=== PATIENT | female | born 1940 | race Caucasian/White ===

== ENCOUNTER 2021-12-02 16:04 | Emergency (ER) | payer MEDICARE ==
[2021-12-02 16:44] VITALS: TEMP 98.7
[2021-12-02 16:58] VITALS: PULSE 72
[2021-12-02 17:30] LABS: Basophils # (A) 0.1 k/uL (0-0.2); Basophils % (A) 1 %; Eosinophils # (A) 0.1 k/uL (0-0.7); Eosinophils % (A) 1 %; HCT 39.2 % (34.0-46.0); HGB 13.1 gm/dL (11.4-16.0); Lymphocytes # (A) 1.2 k/uL (1.0-4.8); Lymphocytes % (A) 13 %; MCH 32.9 pg (25.0-35.0); MCHC 33.3 g/dL (31.0-37.0); MCV 98.9 fL (80.0-100.0); Mean Platelet Volume 8.1; Monocytes # (A) 0.4 k/uL (0-1.0); Monocytes % (A) 4 %; Neutrophils # (A) 7.2 k/uL (1.3-7.7); Neutrophils % (A) 80 %; Platelet Count 232 k/uL (150-450); RBC 3.97 m/uL (3.80-5.40); RDW 12.6 % (11.5-15.5)
--- NOTE | 2021-12-02 17:30 | ED ---
General Adult HPI - General Chief complaint: Syncope Stated complaint: Syncope Time Seen by Provider: 12/02/21 16:45 Source: patient, EMS, RN notes reviewed, old records reviewed Mode of arrival: EMS Limitations: no limitations - History of Present Illness Initial comments: This a 80-year-old female presents emergency Department after having had a synco pal episode. Patient states it has happened in the past. Patient states she's had a loop recorder in for about a year and a half and his been told that there have been episodes where she has had little long pauses in her heartbeat. Patient states today she was getting out of a car felt strange states her vision became all white and she had to be sent down on the ground and her stated she was unconscious for approximately 1 minute. Patient denies any chest pain palpitations difficulty breathing or shortness of breath. Patient states now she still feels a little weird but does not have the sensation she is going to pass out. No time did the patient have any palpitations. Patient has had no recent fever chills or cough. Patient denies abdominal pain patient denies any recent vomiting or diarrhea. - Related Data Home Medications Medication Instructions Recorded Confirmed Acetaminophen [Tylenol 8 Hour] 1,300 mg PO TID PRN 12/02/21 12/02/21 Apixaban [Eliquis] 5 mg PO BID 12/02/21 12/02/21 Candesartan Cilexetil 4 mg PO BID 12/02/21 12/02/21 Cetirizine HCl 10 mg PO DAILY 12/02/21 12/02/21 Dronedarone HCl [Multaq] 400 mg PO BID 12/02/21 12/02/21 Famotidine [Pepcid AC] 20 mg PO DAILY 12/02/21 12/02/21 Levothyroxine Sodium [Synthroid] 125 mcg PO DAILY 12/02/21 12/02/21 hydroCHLOROthiazide [Hydrodiuril] 25 mg PO DAILY 12/02/21 12/02/21 Allergies Allergy/AdvReac Type Severity Reaction Status Date / Time No Known Allergies Allergy Verified 12/02/21 18:16 Review of Systems ROS Statement: Those systems with pertinent positive or pertinent negative responses have been documented in the HPI. ROS Other: All systems not noted in ROS Statement are negative. Past Medical History Past Medical History: Atrial Fibrillation, Coronary Artery Disease (CAD), Hypertension, Thyroid Disorder Additional Past Medical History / Comment(s): spondylsis, factor 5 deficiency, hoshimoto History of Any Multi-Drug Resistant Organisms: None Reported Past Surgical History: Adenoidectomy, Appendectomy, Tonsillectomy Past Psychological History: No Psychological Hx Reported Smoking Status: Never smoker Past Alcohol Use History: None Reported Past Drug Use History: None Reported General Exam - General Exam Comments Initial Comments: GENERAL: Patient is well-developed and well-nourished. Patient is nontoxic and well- hydrated and is in no acute distress. ENT: Neck is soft and supple. No significant lymphadenopathy is noted. Oropharynx is clear. Moist mucous membranes. Neck has full range of motion without eliciting any pain. EYES: The sclera were anicteric and conjunctiva were pink and moist. Extraocular movements were intact and pupils were equal round and reactive to light. Eyelids were unremarkable. PULMONARY: Unlabored respirations. Good breath sounds bilaterally. No audible rales rhonchi or wheezing was noted. CARDIOVASCULAR: There is a regular rate and rhythm without any murmurs gallops or rubs. ABDOMEN: Soft and nontender with normal bowel sounds. SKIN: Skin is clear with no lesions or rashes and otherwise unremarkable. NEUROLOGIC: Patient is alert and oriented x3. Cranial nerves II through XII are grossly intact. Motor and sensory are also intact. Normal speech, volume and content. Symmetrical smile. MUSCULOSKELETAL: Normal extremities with adequate strength and full range of motion. LYMPHATICS: No significant lymphadenopathy is noted PSYCHIATRIC: Normal psychiatric evaluation. Limitations: no limitations Course Vital Signs 12/02/21 12/02/21 12/02/21 16:39 16:58 18:20 Temperature 98.7 F Pulse Rate 61 72 72 Respiratory 18 18 14 Rate Blood Pressure 110/67 134/74 O2 Sat by Pulse 98 Oximetry Medical Decision Making - Medical Decision Making EKG shows sinus rhythm at 61 bpm RI interval is 245 QRS is 91 Q-T intervals 432 QTC is 434. Patient's EKG shows some Q waves in 3 and aVF. Chest x-ray shows no acute normalities. Head CT shows no acute abnormality. I spoke with both the and the and indicated I believe they should s cristian in the hospital overnight and see a mortgage originator the morning they discussed it amongst themselves and determined that that was not necessary and he would go home and see the mortgage originator. - Lab Data Result diagrams: 12/02/21 16:30 12/02/21 17:35 Lab Results 12/02/21 12/02/21 12/02/21 Range/Units 16:30 17:35 17:35 WBC 9.0 (3.8-10.6) k/uL RBC 3.97 (3.80-5.40) m/uL Hgb 13.1 (11.4-16.0) gm/dL Hct 39.2 (34.0-46.0) % MCV 98.9 (80.0-100.0) fL MCH 32.9 (25.0-35.0) pg MCHC 33.3 (31.0-37.0) g/dL RDW 12.6 (11.5-15.5) % Plt Count 232 (150-450) k/uL MPV 8.1 Neutrophils % 80 % Lymphocytes % 13 % Monocytes % 4 % Eosinophils % 1 % Basophils % 1 % Neutrophils # 7.2 (1.3-7.7) k/uL Lymphocytes # 1.2 (1.0-4.8) k/uL Monocytes # 0.4 (0-1.0) k/uL Eosinophils # 0.1 (0-0.7) k/uL Basophils # 0.1 (0-0.2) k/uL PT (9.0-12.0) sec INR (<1.2) APTT (22.0-30.0) sec D-Dimer (<0.60) mg/L FEU Sodium 137 (137-145) mmol/L Potassium 3.3 L (3.5-5.1) mmol/L Chloride 103 (98-107) mmol/L Carbon Dioxide 25 (22-30) mmol/L Anion Gap 9 mmol/L BUN 22 H (7-17) mg/dL Creatinine 0.75 (0.52-1.04) mg/dL Est GFR (CKD-EPI)AfAm 88 (>60 ml/min/1.73 sqM) Est GFR (CKD-EPI)NonAf 77 (>60 ml/min/1.73 sqM) Glucose 113 H (74-99) mg/dL Calcium 9.0 (8.4-10.2) mg/dL Magnesium 1.5 L (1.6-2.3) mg/dL Total Bilirubin 0.4 (0.2-1.3) mg/dL AST 38 H (14-36) U/L ALT 22 (4-34) U/L Alkaline Phosphatase 87 (38-126) U/L Troponin I <0.012 (0.000-0.034) ng/mL Total Protein 6.7 (6.3-8.2) g/dL Albumin 4.3 (3.5-5.0) g/dL 12/02/21 Range/Units 17:35 WBC (3.8-10.6) k/uL RBC (3.80-5.40) m/uL Hgb (11.4-16.0) gm/dL Hct (34.0-46.0) % MCV (80.0-100.0) fL MCH (25.0-35.0) pg MCHC (31.0-37.0) g/dL RDW (11.5-15.5) % Plt Count (150-450) k/uL MPV Neutrophils % % Lymphocytes % % Monocytes % % Eosinophils % % Basophils % % Neutrophils # (1.3-7.7) k/uL Lymphocytes # (1.0-4.8) k/uL Monocytes # (0-1.0) k/uL Eosinophils # (0-0.7) k/uL Basophils # (0-0.2) k/uL PT 10.6 (9.0-12.0) sec INR 1.0 (<1.2) APTT 22.0 (22.0-30.0) sec D-Dimer 0.67 H (<0.60) mg/L FEU Sodium (137-145) mmol/L Potassium (3.5-5.1) mmol/L Chloride (98-107) mmol/L Carbon Dioxide (22-30) mmol/L Anion Gap mmol/L BUN (7-17) mg/dL Creatinine (0.52-1.04) mg/dL Est GFR (CKD-EPI)AfAm (>60 ml/min/1.73 sqM) Est GFR (CKD-EPI)NonAf (>60 ml/min/1.73 sqM) Glucose (74-99) mg/dL Calcium (8.4-10.2) mg/dL Magnesium (1.6-2.3) mg/dL Total Bilirubin (0.2-1.3) mg/dL AST (14-36) U/L ALT (4-34) U/L Alkaline Phosphatase (38-126) U/L Troponin I (0.000-0.034) ng/mL Total Protein (6.3-8.2) g/dL Albumin (3.5-5.0) g/dL Disposition Clinical Impression: Syncope Disposition: HOME SELF-CARE Condition: Good Additional Instructions: Patient should follow-up with his mortgage originator. Is patient prescribed a controlled substance at d/c from ED?: No Referrals: None,Stated [REFERRING] - 1-2 days Time of Disposition: 19:28
[2021-12-02 17:57] LABS: Albumin 4.3 g/dL (3.5-5.0); Magnesium 1.5 mg/dL (1.6-2.3); Potassium 3.3 mmol/L (3.5-5.1); Total Bilirubin 0.4 mg/dL (0.2-1.3); Total Protein 6.7 g/dL (6.3-8.2)
[2021-12-02 18:03] LABS: Prothrombin Time 10.6 sec (9.0-12.0)
[2021-12-02 18:20] VITALS: BP 134/74; RESP 14
--- NOTE | 2021-12-02 18:49 | CT ---
EXAMINATION TYPE: CT brain wo con DATE OF EXAM: 12/02/2021 HISTORY: head trauma CT DLP: 1072.4 mGycm. Automated Exposure Control for Dose Reduction was Utilized. TECHNIQUE: CT scan of the head is performed without contrast. COMPARISON: None. FINDINGS: There is no acute intracranial hemorrhage or midline shift identified. There is diffuse v entricular and sulcal prominence consistent with diffuse age-related cerebral atrophy. There is low- attenuation in the periventricular white matter consistent with chronic small vessel ischemic change. The globes are intact and the visualized sinuses are clear. IMPRESSION: No acute intracranial hemorrhage or midline shift. There is diffuse age-related cerebra l atrophy and chronic small vessel ischemic change noted.
--- NOTE | 2021-12-02 19:10 | XR ---
EXAMINATION: XR chest 2V DATE AND TIME: 12/02/2021 5:51 PM CLINICAL INDICATION: PHH; Chest Pain TECHNIQUE: Departmental protocol COMPARISON: None FINDINGS: Overlying soft tissues are prominent. The lungs appear to be clear. The pleural spaces are negative. The cardiac silhouette is not enlarged. The remainder of the mediastinal silhouette is unremarkable. The skeletal structures and soft tissues are negative for acute findings. IMPRESSION: NO ACUTE PROCESS.
== END 2021-12-02 20:12 | disposition home or self-care (01) ==
LOC: EC 16:04
DX: R55 Syncope and collapse (principal); E07.9 Disorder of thyroid, unspecified; Z79.899 Other long term (current) drug therapy
CPT/HCPCS: 36415; 70450; 71046; 80053; 83735; 84484; 85025; 85379; 85610; 85730; 93005; 99285